=== PATIENT | male | born 1975 | race Caucasian/White ===

== ENCOUNTER 2016-08-10 08:28 | Emergency (ER) | payer OTHER ==
--- NOTE | 2016-08-10 10:15 | ED NURSING NOTES ---
Clinical Report - Nurses [facility] [address] [place] [address] 08/10/2016 8:30 Patient: JAY JAY ABAD TRIAGE Acuity: LEVEL 4. Chief Complaint: SKIN PROBLEM and BOIL. Alert. No acute distress. SEPSIS SCREEN: Sepsis Screen. Negative (no infection suspected/documented). --08:39 Samra Tang R.N. 08:36 08/10/16. BP: 140/90. HR: 89. RR: 18. O2 saturation: 98% on room air. Temp: 98 F (oral). Pain level now: 12/14. --08:39 Samra Tang R.N. Weight: 88.4 kg stated. Height/Length: 75 inches Per Patient. BMI: 24.4. --08:39 Samra Tang R.N. Medications None. --08:37 Samra Tang R.N. Medication/allergy information source: the patient. --08:39 Samra Tang R.N. Allergies No Known Drug Allergy. --08:37 Samra Tang R.N. History Arrived by private vehicle. Historian: patient. Unaccompanied. Primary physician (none). Reported as located on the right arm. Onset. (4 days ago). PAST MEDICAL HX: Immunizations: up-to-date. SOCIAL HX: Current every day light tobacco smoker (cigarette)- less than 1/2 a pack per day. Occasional alcohol use. History of heavy drug use: marijuana. (pt denies IV drug use). FALL RISK ASSESSMENT: Fall risk assessment completed. No fall risk identified. NUTRITIONAL RISK ASSESSMENT: The nutritional risk assessment revealed no deficiencies. FUNCTIONAL ASSESSMENT: Functional assessment: no impairments noted. LEARNING NEEDS ASSESSMENT: The learning needs assessment revealed no barriers. SKIN INTEGRITY ASSESSMENT: Skin integrity risk assessment completed. No skin integrity risk identified. --08:39 Samra Tang R.N. PROBLEMS: Ureterolithiasis. Substance Abuse. Abscess. --08:37 Samra Tnag R.N. ADDITIONAL SURGERIES: Fracture Repair. --08:37 Samra Tang R.N. Assessment GENERAL / NEURO / PSYCH: Alert. Oriented X 4. Appears in no acute distress. Patient appears calm and cooperative. RESPIRATORY: Respirations not labored. CVS: Capillary refill less than 2 seconds. GI / : Abdomen soft and nontender. SKIN: Mucous membranes are pink. Skin is warm and dry. --08:39 Samra Tang R.N. Interventions ID band on patient. To treatment room. --08:39 Samra Tang R.N. PHYSICAL ASSESSMENT Ambulatory to room. GENERAL / NEURO / PSYCH: Alert. The patient does not appear to be in acute distress. Oriented X 4. HEENT: Pupils equal, round and reactive to light. Mucous membranes are pink. RESPIRATORY: Respirations not labored. CVS: Capillary refill less than 2 seconds. GI / : Abdomen nontender. SKIN: Skin is intact, warm and dry. No skin rash. --08:39 Samra Tang R.N. NURSING PROGRESS NOTES 08:40 08/10/16. Patient gowned. Two patient identifiers checked. Call light placed in reach. Side rails up x 1. Bed placed in lowest position. Brakes of bed on. Patient ready for evaluation- chart flagged and ED physician notified. --08:40 Samra Tang R.N. 09:53 08/10/2016 Lidocaine-Epinephrine (Lidocaine-Epinephrine) Injection 2 % given. Allergies verified and confirmed 5 rights. (given to ED MD). --09:53 Samra Tang R.N. DISPOSITION / DISCHARGE Departure time: 10:Aug 10 2016. Condition at departure: improved and stable. No learning barriers present. Discharge instructions provided and reviewed with the patient. Reviewed medication(s) side effects, precautions, dosing and course information. Prescription(s) given to the patient. Reviewed wound care and skin care instructions. Patient verbalized understanding. Written instructions provided in French. The patient was discharged by the physician. He was discharged home. He left the Emergency Department ambulatory and via private vehicle. Patient driving. --10:37 Samra Tang R.N. 10:35 08/10/16. BP: 136/87. HR: 87. RR: 16. O2 saturation: 100% on room air. Temp: 98.1 F (oral). Pain level now: 09/13. --10:37 Samra Tang R.N. Locked/Released at 08/10/2016 10:37 by Samra Tang R.N.
--- NOTE | 2016-08-10 10:15 | ED CLINICAL REPORT ---
Clinical Report - Physicians/Mid Levels [facility] [address] [place] [address] 08/10/2016 8:30 Patient: JAY JAY ABAD Time Seen: 09. Arrived- By private vehicle. Historian- patient. HISTORY OF PRESENT ILLNESS Chief Complaint: BOIL. This started past few days and is still present (worsening). It was gradual in onset and has been constant but is not gone now. It has been located on the right upper extremity. No cause has been identified. Similar symptoms previously: Several times. Recent medical care: Not recently seen/assessed. REVIEW OF SYSTEMS No fever, difficulty breathing or chest pain. All systems otherwise negative, except as recorded above. PAST HISTORY See nurses notes. Tetanus immunization status is up-to-date. SOCIAL HISTORY Smoker- current status unknown. Occasional alcohol use. History of drug use: marijuana. No recent travel. Is a local resident. ADDITIONAL NOTES The nursing notes have been reviewed. PHYSICAL EXAM Vital Signs: 08/10/2016 08:36 BP: 140/90. HR: 89. RR: 18. O2 saturation: 98%. Temp: 98 F. Pain level now: 9/10. Blood pressure normal. Oxygen saturation normal. Appearance: Alert. Oriented X3. No acute distress. Eyes: Pupils equal, round and reactive to light. Conjunctivae and eyelids normal. ENT: Ears normal. Nose normal. Pharynx normal. CVS: Normal heart rate and rhythm. Heart sounds normal. Respiratory: No respiratory distress. Breath sounds normal. Chest nontender. Abdomen: Nontender. No organomegaly. Skin: Small area of cellulitis to right forearm (volar spect). Single small abscess with fluctuance and pointing to right forearm (volar aspect). No drainage. (compartments are soft. neuro vasc intact.). Extremities: Normal external inspection. Extremities nontender. Neuro: Oriented X 3. No motor deficit. No sensory deficit. PROGRESS AND PROCEDURES Incision & Drainage of Abscess: The risks of the procedure, benefits and alternatives were explained. Consent was obtained. Anesthesia provided using 1% lidocaine with epi. Skin cleansed with Betadine. Ultrasound utilized to confirm presence and determine location of abscess. The abscess was incised with a #11 surgical blade. A small amount of pus was drained. Cavity was irrigated with saline and packed with gauze. ( consent in verbal form). Course of Care: The patient is a pleasant 41 yo male with no pertinent past medical history. Patient here today for abscess. Tried to drain it at home. US confirms abscess. Bedside I & D success full. No complications. Please see procedure note. Patient non-toxic. No systemic symptoms. Discussed with patient is work up here in the ED, diagnosis, home care, follow up, and return precations. All questions answered. Patient expressed understanding of these instructions and was agreeable to them. CLINICAL IMPRESSION 08/10/2016 08:36 BP: 140/90. HR: 89. RR: 18. O2 saturation: 98%. Temp: 98 F. Pain level now: 910. Hypertensive. Oxygen saturation normal. Cellulitis of the right forearm (acute). Single abscess to the right upper extremity. Essential hypertension. INSTRUCTIONS Warnings: GENERAL WARNINGS: Return or contact your physician immediately if your condition worsens or changes unexpectedly, if not improving as expected, or if other problems arise. Specifically return if pain, vomiting, bleeding, breathing difficulty or fever. numbness, tingling, weakness, increased swelling, increased redness, or other concerns. Your Current Medications: CONTINUE TAKING THE FOLLOWING MEDICATIONS: None*. Prescription Medications: Bactrim DS 800 mg / 160 mg: take 1 tablet orally every 12 hours for 10 days. No refill. Substitution is permissible. (disp 20 caps) Keflex 500 mg: take 1 capsule orally every 12 hours for 10 days. No refill. Substitution is permissible. (disp 30 caps) Follow-up: Return to the emergency department as needed. Follow up with your doctor in three days. Reason for referral: recheck today's concerns. Summary of care provided to patient via paper. Screening today revealed the patient's blood pressure to be in the normal range. The patient should follow up with a primary care provider for blood pressure management. Understanding of the discharge instructions verbalized by patient. (Electronically signed by Keon Gibbons Dr. 08/10/2016 10:18)
--- NOTE | 2016-08-10 10:16 | ED ORDER SUMMARY ---
..... Patient: JAY JAY ABAD OrderSheet [facility] VisitID: [id number] [address] [place] [address] 41y, M Registration Date/Time: 08/10/2016 ORDER SHEET Weight: 88.4 kg (stated) Allergies: No Known Drug Allergy GENERAL ORDERS: I&D Tray (:44 08/10/2016 Venecia Ashley) (9:53 MWinterer R.N.) (Ack 9:53 TBergley) MEDICATION ORDERS: Lidocaine-Epinephrine Injection 1% (NOW, place at bedside) (:44 08/10/2016 Venecia Ashley) (9:53 MWinterer R.N.) IV FLUIDS: ORDER SHEET NOTES: [Electronically signed by Keon Gibbons Dr. (10:18 08/10/2016)] [Electronically signed by Samra Tang R.N. (10:37 08/10/2016)] [Electronically locked/signed by Samra Tang R.N. (10:37 08/10/2016)]
--- NOTE | 2016-08-10 10:16 | ED ORDER SUMMARY ---
..... Patient: JAY JAY ABAD OrderSheet [facility] VisitID: [id number] [address] [place] [address] 41y, M Registration Date/Time: 08/10/2016 ORDER SHEET Weight: 88.4 kg (stated) Allergies: No Known Drug Allergy GENERAL ORDERS: I&D Tray (:44 08/10/2016 Venecia Ashley) (9:53 MWinterer R.N.) (Ack 9:53 TBergley) MEDICATION ORDERS: Lidocaine-Epinephrine Injection 1% (NOW, place at bedside) (:44 08/10/2016 Venecia Ashley) (9:53 MWinterer R.N.) IV FLUIDS: ORDER SHEET NOTES: [Electronically signed by Keon Gibbons Dr. (10:18 08/10/2016)] [Electronically signed by Samra Tang R.N. (10:37 08/10/2016)] [Electronically locked/signed by Samra Tang R.N. (10:37 08/10/2016)]
--- NOTE | 2016-08-10 10:37 | ED MED RECONCILIATION SUMMARY ---
Patient: JAY JAY ABAD Medication Reconciliation Report [facility] VisitID: [id number] [address] [place] [address] 41y, M Registration Date/Time: 08/10/2016 Weight: 88.4 kg Height/Length: 75 in. BMI: 24.4 ALLERGIES: No Known Drug Allergy The patient's Home Medications are listed below: NONE. The source(s) of the original Home Medication information: patient The following Medications were given to the patient in the Emergency Department: Lidocaine-Epinephrine [Injection] Injection 2 %, administered: 08/10/2016 9:53:00 AM The following Medications were prescribed to the patient: Bactrim DS 800 mg / 160 mg: take 1 tablet orally every 12 hours for 10 days. No refill. Substitution is permissible.(disp 20 caps) -- Keon Gibbons Dr. Keflex 500 mg: take 1 capsule orally every 12 hours for 10 days. No refill. Substitution is permissible.(disp 30 caps) -- Keon Gibbons Dr.
--- NOTE | 2016-08-10 10:37 | ED MAR SUMMARY ---
..... Medication Administration Record [address] [place] [address] Patient: JAY JAY ABAD Visit ID: [id number] 41y, M Weight: 88.4 kg Height/Length: 75 in BMI: 24.4 ALLERGIES: No Known Drug Allergy Given 09:53 08/10/2016 Samra Tang R.N. Medication Administered: LIDOCAINE-EPINEPHRINE [INJECTION] (LIDOCAINE-EPINEPHRINE), Dose: 2 % Injection. Medication Ordered: Lidocaine-Epinephrine Injection 1% (NOW, place at bedside).
--- NOTE | 2016-08-10 10:37 | ED MED RECONCILIATION SUMMARY ---
Patient: JAY JAY ABAD Medication Reconciliation Report [facility] VisitID: [id number] [address] [place] [address] 41y, M Registration Date/Time: 08/10/2016 Weight: 88.4 kg Height/Length: 75 in. BMI: 24.4 ALLERGIES: No Known Drug Allergy The patient's Home Medications are listed below: NONE. The source(s) of the original Home Medication information: patient The following Medications were given to the patient in the Emergency Department: Lidocaine-Epinephrine [Injection] Injection 2 %, administered: 08/10/2016 9:53:00 AM The following Medications were prescribed to the patient: Bactrim DS 800 mg / 160 mg: take 1 tablet orally every 12 hours for 10 days. No refill. Substitution is permissible.(disp 20 caps) -- Keon Gibbons Dr. Keflex 500 mg: take 1 capsule orally every 12 hours for 10 days. No refill. Substitution is permissible.(disp 30 caps) -- Keon Gibbons Dr.
--- NOTE | 2016-08-10 10:37 | ED DISCHARGE INSTRUCTIONS ---
Patient: JAY JAY ABAD General Instructions [facility] VisitID: [id number] [address] [place] [address] 41y, M Registration Date/Time: 08/10/2016 08/10/2016 08:36 BP: 140/90. HR: 89. RR: 18. O2 saturation: 98%. Temp: 98 F. Pain level now: 9/10. Hypertensive. Oxygen saturation normal. Cellulitis of the right forearm (acute). Single abscess to the right upper extremity. Essential hypertension. INSTRUCTIONS Warnings: GENERAL WARNINGS: Return or contact your physician immediately if your condition worsens or changes unexpectedly, if not improving as expected, or if other problems arise. Specifically return if pain, vomiting, bleeding, breathing difficulty or fever. numbness, tingling, weakness, increased swelling, increased redness, or other concerns. Your Current Medications: CONTINUE TAKING THE FOLLOWING MEDICATIONS: None*. Prescription Medications: Bactrim DS 800 mg / 160 mg: take 1 tablet orally every 12 hours for 10 days. No refill. Substitution is permissible. (disp 20 caps) Keflex 500 mg: take 1 capsule orally every 12 hours for 10 days. No refill. Substitution is permissible. (disp 30 caps) Follow-up: Return to the emergency department as needed. Follow up with your doctor in three days. Reason for referral: recheck today's concerns. Summary of care provided to patient via paper. Screening today revealed the patient's blood pressure to be in the normal range. The patient should follow up with a primary care provider for blood pressure management. Understanding of the discharge instructions verbalized by patient. ADDITIONAL INFORMATION Cellulitis You have an infection of the skin known as cellulitis. This usually starts with a scrape, cut, insect bite, blister or other opening in the skin which becomes infected. This is a serious condition. It must be watched closely to be sure the infection is not spreading. With antibiotic treatment, the size of the red area will gradually shrink in size until the skin returns to normal. This will take 7-10 days. The red area should never increase in size once the antibiotic medicine has been started. Occasionally, an infection will be resistant to one antibiotic and another one will have to be used. Home Care: 1) Limit the use of the affected part, since excess movement can cause the infection to spread. 2) If the infection is on your leg, walk as little as possible during the first few days of the treatment. Keep your leg elevated while sitting. This will reduce swelling. 3) Take all of the antibiotic medicine exactly as directed until it is gone. Be careful not to miss any doses, especially during the first seven days. Follow Up with your doctor or this facility as directed. Check the infected area daily for the warning signs listed below. Get Prompt Medical Attention if any of the following occur: -- Spreading area of redness -- Increasing swelling or pain -- Appearance of pus or drainage -- Fever over 100.4 F (38.0 C) oral, or over 101.4 F (38.6 C) rectal, after two days on antibiotics Abscess [Incision & Drainage] An abscess (sometimes called a boil) occurs when bacteria get trapped under the skin and begin to grow. Pus forms inside the abscess as the body responds to the bacteria. An abscess can occur with an insect bite, ingrown hair, blocked oil gland, pimple, cyst, or puncture wound. Treatment of your abscess has required an incision to drain the pus. If the abscess pocket was large, a gauze packing may have been inserted. This will need to be removed and possibly replaced on your next visit. Antibiotics are not required in the treatment of a simple abscess, unless the infection is spreading into the skin around the wound (known as cellulitis). Healing of the wound will take about one to two weeks depending on the size of the abscess. Healthy tissue will grow from the bottom and sides of the opening until it seals over. Home Care: The wound may drain for the first two days. Cover the wound with a clean dry dressing. If the dressing becomes soaked with blood or pus, change it. If a gauze packing was placed inside the abscess cavity, you may be advised to remove it yourself. You may do this in the shower. Once the packing is removed, you should wash the area in the shower or bath 3 to 4 times a day, until the skin opening has closed. If you were prescribed antibiotics, take them as directed until they are all gone. You may use acetaminophen (Tylenol) or ibuprofen (Motrin, Advil) to control pain, unless another pain medicine was prescribed. [ NOTE: If you have liver disease or ever had a stomach ulcer, talk with your doctor before using these medicines.] Follow Up with your doctor as advised by our staff. If a gauze packing was inserted in your wound, it should be removed in 1-2 days. Check your wound every day for the signs of worsening infection listed below. Get Prompt Medical Attention if any of the following occur: Increasing redness or swelling Red streaks in the skin leading away from the wound Increasing local pain or swelling Continued pus draining from the wound two days after treatment Fever of 100.4F (38C) or higher, or as directed by your healthcare provider High Blood Pressure -- To Be Confirmed [No Tx] Your blood pressure was higher today than normal. Sometimes anxiety or pain can cause a temporary rise in blood pressure that later returns to normal. If your blood pressure is high on one measurement, this does not mean that you have hypertension (a chronic illness). However, you must have your blood pressure measured again within the next few days to find out if its still high. A normal blood pressure is 120/80 or less. The first (top) number is the "systolic" pressure. The second (bottom) number is the "diastolic" pressure. Hypertension exists when either the top number is 140 or higher, OR the bottom number is 90 or higher on repeated measurements. Blood pressure in the range of 120-140 (systolic) or 80-89 (diastolic) is considered "pre-hypertension". This means your are at risk for getting hypertension. You should have regular blood pressure checks to be sure your blood pressure is not rising. Home Care: Measure your blood pressure on 3 different days and write down the results. This can be done at your doctor's office or this facility. Some pharmacies and grocery stores offer automated blood pressure machines for your use. Follow Up: If your blood pressure is "high" (over 120/80) on 2 out of 3 days, you will need to follow up with your doctor for further evaluation and treatment. DO NOT PUT THIS OFF! Untreated high blood pressure increases the risk for heart attack, also known as acute myocardial infarction, or AMI, and stroke. It is a treatable condition. Get Prompt Medical Attention if any of the following occur: Chest pain or shortness of breath Severe headache Throbbing or rushing sound in the ears Nosebleed Sudden severe abdominal pain Extreme drowsiness, confusion or fainting Dizziness or vertigo (dizziness with spinning sensation) Weakness of an arm or leg or one side of the face Difficulty with speech or vision Sulfamethoxazole, Trimethoprim Oral tablet What is this medicine? SULFAMETHOXAZOLE; TRIMETHOPRIM or SMX-TMP (suhl fuh meth OK villa zohl; trye METH oh prim) is a combination of a sulfonamide antibiotic and a second antibiotic, trimethoprim. It is used to treat or prevent certain kinds of bacterial infections. It will not work for colds, flu, or other viral infections. How should I use this medicine? Take this medicine by mouth with a full glass of water. Follow the directions on the prescription label. Take your medicine at regular intervals. Do not take it more often than directed. Do not skip doses or stop your medicine early. Talk to your material liaison regarding the use of this medicine in children. Special care may be needed. This medicine has been used in children as young as 2 months of age. What side effects may I notice from receiving this medicine? Side effects that you should report to your doctor or health rn transitional care as soon as possible: allergic reactions like skin rash or hives, swelling of the face, lips, or tongue breathing problems fever or chills, sore throat irregular heartbeat, chest pain joint or muscle pain pain or difficulty passing urine red pinpoint spots on skin redness, blistering, peeling or loosening of the skin, including inside the mouth unusual bleeding or bruising unusually weak or tired yellowing of the eyes or skin Side effects that usually do not require medical attention (report to your doctor or health rn transitional care if they continue or are bothersome): diarrhea dizziness headache loss of appetite nausea, vomiting nervousness What may interact with this medicine? Do not take this medicine with any of the following medications: aminobenzoate potassium dofetilide metronidazole This medicine may also interact with the following medications: PADMINI inhibitors like benazepril, enalapril, lisinopril, and ramipril cyclosporine digoxin diuretics indomethacin medicines for diabetes methenamine methotrexate phenytoin potassium supplements pyrimethamine sulfinpyrazone tricyclic antidepressants warfarin What if I miss a dose? If you miss a dose, take it as soon as you can. If it is almost time for your next dose, take only that dose. Do not take double or extra doses. Where should I keep my medicine? Keep out of the reach of children. Store at room temperature between 20 to 25 degrees C (68 to 77 degrees F). Protect from light. Throw away any unused medicine after the expiration date. What should I tell my health care provider before I take this medicine? They need to know if you have any of these conditions: anemia asthma being treated with anticonvulsants if you frequently drink alcohol containing drinks kidney disease liver disease low level of folic acid or [id number] dehydrogenase poor nutrition or malabsorption porphyria severe allergies thyroid disorder an unusual or allergic reaction to sulfamethoxazole, trimethoprim, sulfa drugs, other medicines, foods, dyes, or preservatives or trying to get breast-feeding What should I watch for while using this medicine? Tell your doctor or health rn transitional care if your symptoms do not improve. Drink several glasses of water a day to reduce the risk of kidney problems. Do not treat diarrhea with over the counter products. Contact your doctor if you have diarrhea that lasts more than 2 days or if it is severe and watery. This medicine can make you more sensitive to the sun. Keep out of the sun. If you cannot avoid being in the sun, wear protective clothing and use a sunscreen. Do not use sun lamps or tanning beds/booths. Cephalexin Monohydrate Oral tablet What is this medicine? CEPHALEXIN (sef a TREV in) is a cephalosporin antibiotic. It is used to treat certain kinds of bacterial infections It will not work for colds, flu, or other viral infections. How should I use this medicine? Take this medicine by mouth with a full glass of water. Follow the directions on the prescription label. This medicine can be taken with or without food. Take your medicine at regular intervals. Do not take your medicine more often than directed. Take all of your medicine as directed even if you think you are better. Do not skip doses or stop your medicine early. Talk to your material liaison regarding the use of this medicine in children. While this drug may be prescribed for selected conditions, precautions do apply. What side effects may I notice from receiving this medicine? Side effects that you should report to your doctor or health rn transitional care as soon as possible: allergic reactions like skin rash, itching or hives, swelling of the face, lips, or tongue breathing problems pain or trouble passing urine redness, blistering, peeling or loosening of the skin, including inside the mouth severe or watery diarrhea unusually weak or tired yellowing of the eyes, skin Side effects that usually do not require medical attention (report to your doctor or health rn transitional care if they continue or are bothersome): gas or heartburn genital or anal irritation headache joint or muscle pain nausea, vomiting What may interact with this medicine? probenecid some other antibiotics What if I miss a dose? If you miss a dose, take it as soon as you can. If it is almost time for your next dose, take only that dose. Do not take double or extra doses. There should be at least 4 to 6 hours between doses. Where should I keep my medicine? Keep out of the reach of children. Store at room temperature between 59 and 86 degrees F (15 and 30 degrees C). Throw away any unused medicine after the expiration date. What should I tell my health care provider before I take this medicine? They need to know if you have any of these conditions: kidney disease stomach or intestine problems, especially colitis an unusual or allergic reaction to cephalexin, other cephalosporins, penicillins, other antibiotics, medicines, foods, dyes or preservatives or trying to get breast-feeding What should I watch for while using this medicine? Tell your doctor or health rn transitional care if your symptoms do not begin to improve in a few days. Do not treat diarrhea with over the counter products. Contact your doctor if you have diarrhea that lasts more than 2 days or if it is severe and watery. If you have diabetes, you may get a false-positive result for sugar in your urine. Check with your doctor or health rn transitional care. You have been given the following additional information: Cellulitis Abscess, Incision And Drainage Hypertension, To Be Confirmed Sulfamethoxazole, Trimethoprim Oral tablet Cephalexin Monohydrate Oral tablet (Electronically signed by Keon Gibbons Dr. 08/10/2016 10:18)
--- NOTE | 2016-08-10 10:37 | ED MAR SUMMARY ---
..... Medication Administration Record [address] [place] [address] Patient: JAY JAY ABAD Visit ID: [id number] 41y, M Weight: 88.4 kg Height/Length: 75 in BMI: 24.4 ALLERGIES: No Known Drug Allergy Given 09:53 08/10/2016 Samra Tang R.N. Medication Administered: LIDOCAINE-EPINEPHRINE [INJECTION] (LIDOCAINE-EPINEPHRINE), Dose: 2 % Injection. Medication Ordered: Lidocaine-Epinephrine Injection 1% (NOW, place at bedside).
== END 2016-08-10 10:25 | disposition home or self-care (01) ==
LOC: ED SRH 08:28
DX: L03.113 Cellulitis of right upper limb (principal); L02.413 Cutaneous abscess of right upper limb; I10 Essential (primary) hypertension; F17.219 Nicotine dependence, cigarettes, with unspecified nicotine-induced disorders